=== PATIENT | female | born 1990 | race Caucasian/White ===

== ENCOUNTER 2021-11-05 09:36 | Emergency (ER) | payer MEDICAID, SELFPAY ==
[2021-11-05 09:39] VITALS: BP 134/93; PULSE 90; RESP 14; TEMP 35.3; O2SAT 98; BMI 33.5
--- NOTE | 2021-11-05 09:57 | CT_ITS ---
STUDY: CT BRAIN WITHOUT CONTRAST REASON FOR EXAM: Female, 31 years old. Headache RADIATION DOSAGE (If Supplied By Facility): CTDIvol = ( 47.06 ) mGy, DLP = ( 802.10 ) mGycm TECHNIQUE: Transaxial CT imaging of the brain was performed without administration of intravenous contrast material. Individualized dose optimization techniques were used for this CT. COMPARISON: No relevant priors. FINDINGS: Normal soft tissue structures. Normal calvarium. Normal size ventricles and extra-axial spaces for the patient''s age. Normal white matter tracts of the cerebral hemispheres. Normal basal ganglia and thalami. Normal brainstem. Normal cerebellum. There is no intracranial hemorrhage. There are no findings of an acute ischemic infarction. Normal visualized paranasal sinuses. CT/Brain/Head without Contrast IMPRESSION: Normal unenhanced CT scan of the brain. Electronically Signed: Lalo Villalta MD at 11:06 EST , Service support ,
--- NOTE | 2021-11-05 09:58 | EDS_ITS ---
HPI History of Present Illness Chief Complaint: Vision Prob Narrative Narrative: 31-year-old female presenting with headache. She states she has a history of migraine and usually has to take Fioricet for this. She is out of Fioricet.. Patient currently day five of COVID-19 symptoms. She lives with her mother who is positive for COVID however she tested negative on day one. Patient expressing mild symptoms of chills, body aches, mild cough. Subjective fevers. No chest pain or shortness of breath. Patient states he developed a migraine headache yesterday. When she went to the urgent care she complained that she had some decreased vision in her left eye which is typical of her migraine headaches. They referred her to the ER for evaluation. She also states that they did not check her vision at the urgent care. PFSH PFS Home Medications cholecalciferol (vitamin D3) [Vitamin D3] 11/05/21 [History Last Taken Unknown] diazepam 11/05/21 [History Last Taken Unknown] etonogestrel-ethinyl estradiol vag ring VAGINAL 11/05/21 [History Last Taken Unknown] gabapentin 11/05/21 [History Last Taken Unknown] hydroxychloroquine PO 11/05/21 [History Last Taken Unknown] levothyroxine 11/05/21 [History Last Taken Unknown] magnesium 11/05/21 [History Last Taken Unknown] sertraline mg 11/05/21 [History Last Taken Unknown] topiramate 11/05/21 [History Last Taken Unknown] trazodone 11/05/21 [History Last Taken Unknown] Allergy/AdvReac Type Severity Reaction Status Date / Time chocolate flavor AdvReac Itching Verified 11/05/21 09:39 peanut AdvReac Itching Verified 11/05/21 09:39 rizatriptan [From Maxalt] AdvReac Other Verified 11/05/21 09:38 tramadol AdvReac Hives Verified 11/05/21 09:39 Social History Smoking Status: Never smoker ROS ROS ED Constitutional Constitutional ED: Denies chills or fever(s) Eyes Eyes: Reports blurry vision left ENT ENT ED: Denies rhinorrhea or sore throat Cardiovascular Cardiovascular: Denies chest pain or palpitations Respiratory/Chest Respiratory/Chest: Reports cough; Denies dyspnea or dyspnea on exertion Gastrointestinal Gastrointestinal: Reports nausea; Denies abdominal pain Genitourinary Genitourinary ED: Denies dysuria or hematuria Musculoskeletal Musculoskeletal: Reports myalgias; Denies arthralgias Integumentary Denies Abrasions or rash Neurologic Neurologic: Reports headache(s); Denies paresthesias or weakness EXAM Physical Exam Const Vital Signs: 11/05/21 09:39 11/05/21 12:09 11/05/21 13:04 Temperature 95.6 F L Temperature Source Temporal Pulse Rate 90 63 68 Respiratory Rate 14 15 15 Blood Pressure 134/93 H 104/71 110/82 H Blood Pressure Mean 106 82 Pulse Ox 98 99 98 Oxygen Delivery Method Room Air Room Air Positive well nourished General Appearance ED: NAD HEENT Reports normocephalic and moist mucous membranes Eyes PERRL and EOMs intact bilaterally Eyes Narrative: Patient able to count fingers bilaterally at the bedside. Neck no lymphadenopathy and supple Resp normal respiratory effort and clear to auscultation bilaterally Cardio regular rate and regular rhythm Extremity normal to inspection and full ROM Neuro oriented x3 and no sensory deficits noted Sensorium / Orientation: awake and alert Motor Exam: strength 5/5 throughout Skin Lesions: no lesions Rashes: no rashes MDM MDM MDM Narrative Medical decision making narrative: Patient presenting with headache and visual complaints left eye. She states is typical of her migraines but she also states has never had an imaging of her brain. I obtained a CT and give her Reglan and Benadryl. On reevaluation she is feeling improved and visual complaint resolved. CT of the brain was negative for acute intracranial findings. She was then given Toradol. Rapid COVID was negative. Patient request testing with PCR because she wants the monoclonal antibodies. This was ordered and the patient will wait at home for the test result. I do not believe she is to stay in the ER for this. I do not believe she needs further blood work or imaging. If patient is positive for COVID-19 I will refer her. Patient tested negative for COVID-19 on PCR. She does not require referral for monoclonal antibodies. Impression: 1. Migraine Lab Data Labs: Laboratory Results - last 24 hr 11/05/21 11:04 COVID-19 (JENNIFER) Not Detected Radiography Diagnostic Testing: Clinical Impression(s) from Imaging Studies Brain CT 11/05/21 09:57 IMPRESSION: Normal unenhanced CT scan of the brain. Electronically Signed: Lalo Villalta MD at 11:06 EST , Service support , Discharge Plan Triage Chief Complaint: Vision Prob Other Complaint: Eye Problem ED Provider: Marco Vásquez Dx/Rx/DC Orders Instructions: Coronavirus Disease 2019 (COVID-19): Caring for Yourself or Others, Migraines and Cluster Headaches Prescriptions: No Action levothyroxine 175 mcg tablet RF: 0 sertraline 100 mg tablet RF: 0 trazodone 100 mg tablet RF: 0 diazepam 2 mg tablet RF: 0 gabapentin 300 mg capsule RF: 0 magnesium 250 mg tablet RF: 0 hydroxychloroquine 200 mg tablet PO RF: 0 topiramate 100 mg tablet RF: 0 etonogestrel-ethinyl estradiol 0.12-0.015 mg/24 hr ring VAGINAL RF: 0 cholecalciferol (vitamin D3) [Vitamin D3] 50 mcg (2,000 unit) capsule RF: 0 Primary Care Provider: Deborah Cochran NP Referrals: Deborah Cochran NP, [facility] [Primary Care Provider] - Disposition Disposition: Home, Self Care Discharge Date/Time: 11/05/21 13:05
[2021-11-05] MEDS: Metoclopramide 10 MG/2 ML Vial IV (10:21)
[2021-11-05] MEDS: DiphenhydrAMINE 50 MG/ML Syringe 25 MG IV (10:21)
[2021-11-05] MEDS: Ketorolac 15 MG/ML Vial IV (12:08)
[2021-11-05 12:09] VITALS: BP 104/71; PULSE 63; RESP 15; O2SAT 99
[2021-11-05 13:04] VITALS: BP 110/82; PULSE 68; RESP 15; O2SAT 98
== END 2021-11-05 13:05 | disposition home or self-care (01) ==
PROVIDERS: Emergency Provider Student in an Organized Health Care Education/Training Program; PCP Registered Nurse; Visit Provider Student in an Organized Health Care Education/Training Program
DX: G43.909 Migraine, unspecified, not intractable, without status migrainosus (principal)
CPT/HCPCS: U0003; 70450; 87426; 87635; 96374; 96375; 99284; A4216; U0005

== ENCOUNTER 2022-01-20 11:53 | Emergency (ER) | payer OTHER, SELFPAY ==
[2022-01-20 11:53] VITALS: BP 119/76; PULSE 103; RESP 14; TEMP 36.7; O2SAT 98; BMI 27.8
--- NOTE | 2022-01-20 12:20 | CT_ITS ---
STUDY: CT ABDOMEN AND PELVIS WITH CONTRAST REASON FOR EXAM: Female, 31 years old. Pelvic and lower back pain following blunt abdominal trauma. RADIATION DOSAGE (If Supplied By Facility): CTDIvol = ( 14.82 ) mGy, DLP = ( 1014.01 ) mGycm TECHNIQUE: Transaxial images were obtained from the dome of the diaphragm to the symphysis pubis without oral contrast. IV 100mL Isovue-300 was administered. Sagittal and coronal images were reconstructed. Individualized dose optimization techniques were used for this CT. COMPARISON: None. FINDINGS: The visualized lung bases are unremarkable. The visualized portions of the heart are within normal limits. Normal liver. Normal gallbladder and extrahepatic biliary system. Normal spleen. Normal pancreas. Normal bilateral adrenal glands. Normal right kidney. Normal left kidney. Normal visualized stomach. Normal small intestine. Normal colon. There is non-visualization of the appendix. Normal abdominal aorta. Normal inferior vena cava. Normal retroperitoneum. Normal urinary bladder. Small amount of free fluid is seen in the cul-de-sac. There is a 5.8 cm x 5.6 cm septated cystic mass in the left adnexal region. Normal abdominal wall. Prior anterior fusion at the L5-S1 level with disc space narrowing. CT/Abdomen/Pelvis W IV Cont ONLY IMPRESSION: 5.8 cm x 5.6 cm septated cystic mass in the left adnexal region with a small amount of fluid in the cul-de-sac. Prior anterior fusion at the L5-S1 level. Electronically Signed: Lalo Villalta MD at 13:22 EDT ,
--- NOTE | 2022-01-20 12:21 | ED.VIS.GI ---
HPI HPI - GI History of Present Illness Chief Complaint: Abd Pain Informant: patient Abdominal Pain/Flank Pain Onset: Yesterday Context: Sudden Onset Timing: Continuous Quality: Cramping, Sharp and Stabbing Location: RLQ and LLQ Current Severity: Mild Maximum Severity: Moderate Nausea/Vomiting/Emesis GI Symptom: Positive for Nausea and Vomiting Onset: Yesterday Severity: Mild Diarrhea/Melena/Hematochezia GI Symptom: Negative for Diarrhea, Melena and Hematochezia Associated Symptoms Associated Symptoms: Negative for Dysuria, Frequency, Hematuria and Urgency Narrative Narrative: 31-year-old female past medical history of an artificial disc in her back. Hypothyroidism. Anxiety, depression and fibromyalgia. Works at [employer]. Yesterday someone using a [employer] patrick lost control of it and it moved her workstation and Bensch forward pinning her against there and the chair. Said she had immediate lower abdominal pain and nausea vomiting x1 yesterday. She is concerned because she is having pelvic pain and also low back pain. She has had a prior artificial disc in her lower back. She denies any numbness or weakness to her lower extremities. No vaginal bleeding nor any dysuria nor fever. Prior similar symptoms: No Recent Illness/Hospitalization: No PFSH PFSH Medical History Anxiety Depression Fibromyalgia Home Medications cholecalciferol (vitamin D3) [Vitamin D3] 11/05/21 [History Last Taken Unknown] diazepam 11/05/21 [History Last Taken Unknown] etonogestrel-ethinyl estradiol vag ring VAGINAL 11/05/21 [History Last Taken Unknown] gabapentin 11/05/21 [History Last Taken Unknown] hydroxychloroquine PO 11/05/21 [History Last Taken Unknown] levothyroxine 11/05/21 [History Last Taken Unknown] magnesium 11/05/21 [History Last Taken Unknown] sertraline mg 11/05/21 [History Last Taken Unknown] topiramate 11/05/21 [History Last Taken Unknown] trazodone 11/05/21 [History Last Taken Unknown] Allergy/AdvReac Type Severity Reaction Status Date / Time chocolate flavor AdvReac Itching Verified 01/20/22 11:53 peanut AdvReac Itching Verified 01/20/22 11:53 rizatriptan [From Maxalt] AdvReac Other Verified 01/20/22 11:53 tramadol AdvReac Hives Verified 01/20/22 11:53 Social History Smoking Status: Former smoker ROS ROS ED ROS Narrative Nausea and vomiting x1 yesterday. Abdominal pain post trauma. Review of Systems ROS Unobtainable: Denies due to encephalopathy Constitutional Constitutional ED: Denies fever(s) ENT ENT ED: Denies ear pain Cardiovascular Cardiovascular: Denies chest pain Respiratory/Chest Respiratory/Chest: Denies dyspnea Gastrointestinal Gastrointestinal: Reports abdominal pain, nausea and vomiting; Denies constipation, diarrhea or melena Genitourinary Genitourinary ED: Denies dysuria Musculoskeletal Musculoskeletal: Reports back pain; Denies myalgias Integumentary Denies rash Neurologic Neurologic: Denies headache(s) Psychiatric Psychiatric: Denies depression Endocrine Endocrinology: Denies polyuria Hematologic/Lymphatic Hematologic/Lymphatic: Denies easy bruising Allergic/Immunologic Allergic/Immunologic ED: Denies urticaria EXAM Physical Exam Narrative Exam Narrative: 31-year-old female no acute distress vital signs stable afebrile. H EENT exam unremarkable atraumatic. C-spine nontender. Lungs are clear. Heart regular rhythm rate about 100 no murmur. Chest wall nontender. Abdomen soft nondistended normal bowel sounds no peritoneal signs. No distention. No bruising. No signs of trauma she complains of bilateral lower quadrant tenderness but there is no peritoneal signs. Pelvic girdle is intact. She is moving all 4 extremities. Are nontender. Neurovascular intact. Normal range of motion. Normal central stores attendant strength. Normal dorsi plantar flexion. Lower lumbar mild tenderness. No ecchymosis or bruising. Neurologic exam normal. GCS of 15. NIH is 0. Const Vital Signs: 01/20/22 11:53 Temperature 98.1 F Temperature Source Temporal Pulse Rate 103 H Respiratory Rate 14 Blood Pressure 119/76 Blood Pressure Mean 90 Pulse Ox 98 Oxygen Delivery Method Room Air Positive well nourished and well developed; Negative for obese, cachectic, contractures or unkempt General Appearance ED: well developed and NAD; Negative for unkempt, cachectic or contractures Nutritional Appearance: Negative for cachectic or obese HEENT Reports moist mucous membranes normocephalic and atraumatic Eyes PERRL and EOMs intact bilaterally General Eye ED: Negative for pale conjunctiva or scleral icterus Neck no lymphadenopathy, supple and no JVD General: Negative for tenderness Resp normal respiratory effort and clear to auscultation bilaterally Auscultation: Negative for rales or wheezes Cardio regular rate, regular rhythm, S1 normal heart sound, S2 normal heart sound and no murmurs GI non-distended and no masses; Negative for non-tender GI Narrative: Tender bilateral lower quadrants. No signs of trauma on the abdominal wall. Auscultation: normoactive bowel sounds Palpation: soft and tender; Negative for guarding, rigid or rebound tenderness present Back/Spine no CVA tenderness General Back: Negative for CVA tenderness Cervical Spine: Negative for cervical spine tenderness Thoracic Spine / Upper Back: Negative for thoracic spinal tenderness Lumbar Spine / Lower Back: lumbar spinal tenderness Extremity full ROM General Extremety ED: Negative for edema or tenderness General Extremity: Negative for edema Neuro CN's II-XII intact bilaterally and moves all extremities Sensorium / Orientation: alert, oriented to person, oriented to place and oriented to time; Negative for orientation impaired, confused, lethargic or stuporous Motor Exam: strength 5/5 throughout; Negative for general weakness Psych mental status grossly normal and thought process normal Appearance: Negative for unkempt Mood & Affect: Negative for depressed or tearful Skin no wounds Lesions: no lesions Rashes: no rashes MDM MDM MDM Narrative Medical decision making narrative: 31-year-old female with a workers comp injury reportedly pinned between her chair and a workstation yesterday by some type of electric pool patrick that another coworker was using. She had immediate pain at that time his had pain since that time with nausea vomiting x1 yesterday. Exam she is tender but there is no bruising on her abdominal wall. CAT scan and labs along with urinalysis will be obtained. Repeat exam patient doing well at 1:55 PM. We went over CAT scan results and lab results. She will be discharged home. She can follow-up with [facility] for evaluation of her left ovarian cyst. Lab Data Attestation: I reviewed the patient's lab results. Lab results narrative: CBC normal white count of 6. H&H 12 and 37. Normal platelets. Electrolytes potassium is low at 3.2. Gap of 5 normal BUN and creatinine. Glucose 108. test negative. CAT scan shows most likely a ovarian cyst on the left. No acute injuries. Read by the radiologist reviewed by me. Urinalysis shows no Treitz. 10-25 white cells. 1+ bacteria. She is having no urinary symptoms. This will not be treated. We will send a urine culture. Labs: Laboratory Results - last 24 hr 01/20/22 01/20/22 01/20/22 12:37 12:37 12:37 WBC 6.5 RBC 3.82 L Hgb 12.4 Hct 37.4 MCV 97.9 MCH 32.5 H MCHC 33.2 RDW Std Deviation 45.1 H RDW Coeff of Ryan 12.6 Plt Count 272 MPV 10.0 Immature Gran % (Auto) 0.300 Neut % (Auto) 59.6 Lymph % (Auto) 30.9 [place] % (Auto) 6.6 Eos % (Auto) 2.3 Baso % (Auto) 0.3 Absolute Neuts (auto) 3.9 Absolute Lymphs (auto) 2.00 Nucleated RBC % 0 Sodium 142 Potassium 3.2 L Chloride 114 H Carbon Dioxide 23.0 Anion Gap 5 BUN 6 L Creatinine 0.75 Estim Creat Clear Calc 88.26 Est GFR (MDRD) Af Amer 115 Est GFR (MDRD) Non-Af 95 BUN/Creatinine Ratio 8.0 L Glucose 108 H Calcium 8.7 Serum , Qual NEGATIVE Urine Color Urine Clarity Urine pH Ur Specific [place] Urine Protein Urine Glucose (UA) Urine Ketones Urine Occult Blood Urine Nitrite Urine Bilirubin Urine Urobilinogen Ur Leukocyte Esterase Urine RBC Urine WBC Ur Squamous Epith Cells Urine Bacteria Urine Mucus 01/20/22 13:29 WBC RBC Hgb Hct MCV MCH MCHC RDW Std Deviation RDW Coeff of Ryan Plt Count MPV Immature Gran % (Auto) Neut % (Auto) Lymph % (Auto) [place] % (Auto) Eos % (Auto) Baso % (Auto) Absolute Neuts (auto) Absolute Lymphs (auto) Nucleated RBC % Sodium Potassium Chloride Carbon Dioxide Anion Gap BUN Creatinine Estim Creat Clear Calc Est GFR (MDRD) Af Amer Est GFR (MDRD) Non-Af BUN/Creatinine Ratio Glucose Calcium Serum , Qual Urine Color Yellow Urine Clarity Sl. Cloudy Urine pH 7.0 Ur Specific [place] 1.010 Urine Protein 15 H Urine Glucose (UA) Normal Urine Ketones Negative Urine Occult Blood Negative Urine Nitrite Negative Urine Bilirubin Negative Urine Urobilinogen Normal Ur Leukocyte Esterase 100 H Urine RBC 0 SEEN Urine WBC 10-25 SEEN Ur Squamous Epith Cells 0-5 SEEN Urine Bacteria 1+ Urine Mucus 0 SEEN Radiography Diagnostic Testing: Clinical Impression(s) from Imaging Studies Abdomen/Pelvis CT 01/20/22 12:20 IMPRESSION: 5.8 cm x 5.6 cm septated cystic mass in the left adnexal region with a small amount of fluid in the cul-de-sac. Prior anterior fusion at the L5-S1 level. Electronically Signed: Lalo Villalta MD at 13:22 EDT , Discharge Plan Triage Chief Complaint: Abd Pain Other Complaint: Back ED Provider: Amos Shea Dx/Rx/DC Orders Clinical Impression: Blunt abdominal trauma, Worker's compensation claim administrative problem, Cyst of left ovary Instructions: Blunt Abdominal Trauma, ED Ovarian Cyst Prescriptions: No Action levothyroxine 175 mcg tablet RF: 0 sertraline 100 mg tablet RF: 0 trazodone 100 mg tablet RF: 0 diazepam 2 mg tablet RF: 0 gabapentin 300 mg capsule RF: 0 magnesium 250 mg tablet RF: 0 hydroxychloroquine 200 mg tablet PO RF: 0 topiramate 100 mg tablet RF: 0 etonogestrel-ethinyl estradiol 0.12-0.015 mg/24 hr ring VAGINAL RF: 0 cholecalciferol (vitamin D3) [Vitamin D3] 50 mcg (2,000 unit) capsule RF: 0 Primary Care Provider: Deborah Cochran NP Referrals: Nicole Monson MD [STAFF PHYSICIAN] - 1 Week Deborah Cochran NP, [facility] [Primary Care Provider] - Activity Restrictions/Additional Instructions: Your abdomen is going to be sore from the trauma. Also you have an incidental finding of a left ovarian cyst which may also be causing you the pain. You need to follow-up with Dr. Nicole Monson for further evaluation of your left ovarian cyst. Motrin and Tylenol for pain. You may return to work. Disposition Disposition: Home, Self Care
[2022-01-20 12:44] LABS: Absolute Neutrophil Count 3.9 X10^3/uL (2.0-7.7); Basophil# 0.02 X10^3/uL; Basophil% 0.3 % (0-1); Eosinophil# 0.15 X10^3/uL; Eosinophils% 2.3 % (0-5); Hematocrit 37.4 % (37-47); Hemoglobin 12.4 g/dL (12.0-15.0); Lymphocyte % 30.9 % (19-41); Mean Corp Hgb Conc 33.2 g/dL (32-36); Mean Corpuscular Hgb 32.5 pg (27.0-32.0); Mean Corpuscular Volume 97.9 fL (81-99); Monocyte# 0.43 X10^3/uL; Monocyte% 6.6 % (0-10); NRBC Flagged by Analyzer 0 % (0-5); Neutrophil # 3.86 X10^3/uL (2.7-7.7); Neutrophil % 59.6 % (47-70); Platelet Count 272 K/mm3 (150-450); RBC Distribution Width CV 12.6 % (11.6-14.6); RBC Distribution Width SD 45.1 fl (35.1-43.9); Red Blood Count 3.82 M/mm3 (4.2-5.4); White Blood Count 6.5 K/mm3 (4.4-11.0)
[2022-01-20 12:58] LABS: Internal QC Validated? YES +Cl - CLEAR BKGD; Pregnancy, Serum, hCG Quali. NEGATIVE Negative
[2022-01-20 13:01] LABS: Anion Gap 5 (5-15); BUN 6 mg/dL (7-18); Calcium,Total 8.7 mg/dL (8.5-10.1); Chloride 114 mmol/L (98-107); Creatinine, Serum 0.75 mg/dL (0.55-1.02); EST Glomerular Filtration Rate 95 mL/min (>60); Est Glom Filt Rate - Afr Amer 115 mL/min (>60); Estimated Creatinine Clearance 88.26 ml/min; Glucose 108 mg/dL (74-106); Potassium 3.2 mmol/L (3.5-5.1); Sodium Level 142 mmol/L (136-145)
[2022-01-20 13:40] LABS: Mucous, Urine 0 SEEN /hpf (<or=2+); Red Blood Cells-Urine 0 SEEN /hpf (0-5)
[2022-01-20 13:59] LABS: Color, Urine Yellow (Yellow); Glucose, Dipstick Normal (Normal); Ketone-Dipstick Negative (Negative); Leukocyte Esterase-Dipstick 100 /ul (Negative); Nitrite-Dipstick Negative (Negative); Occult Blood-Urine Negative /ul (Negative); Protein-Dipstick 15 mg/dl (Negative); Urine Bilirubin Dipstick Negative (Negative); Urine Clarity Sl. Cloudy (Clear); Urine Urobilinogen Normal (Normal)
[2022-01-20 14:12] LABS: White Blood Cells 10-25 SEEN /hpf (0-5)
[2022-01-20 14:13] LABS: Bacteria 1+ /hpf (None Seen); Squamous Epithelial Cells - UA 0-5 SEEN /hpf (5-10)
[2022-01-20 14:25] VITALS: BP 120/74; PULSE 80; RESP 16
== END 2022-01-20 14:26 | disposition home or self-care (01) ==
PROVIDERS: Emergency Provider Emergency Medicine; PCP Registered Nurse; Visit Provider Emergency Medicine
DX: S39.91XA Unspecified injury of abdomen, initial encounter (principal); R11.2 Nausea with vomiting, unspecified; Z87.891 Personal history of nicotine dependence; F41.9 Anxiety disorder, unspecified; M79.7 Fibromyalgia; F32.A Depression, unspecified; E03.9 Hypothyroidism, unspecified; N83.202 Unspecified ovarian cyst, left side; W23.1XXA Caught, crushed, jammed, or pinched between stationary objects, initial encounter; Y99.0 Civilian activity done for income or pay; R10.9 Unspecified abdominal pain
CPT/HCPCS: 74177; 80048; 81001; 84703; 85025; 87086; 87088; 99283; Q9967; A4216